=== PATIENT | male | born 1935 | race Caucasian/White ===

== ENCOUNTER → 2016-11-26 | Outpatient (CLI) | payer BC ==
[~2016-11-26] MED LIST: ATOR-26 PO; CLOP1TAB15 PO; LSN25 PO; METO25TA3 PO
--- NOTE | 2016-11-26 11:03 | DIAGNOSTIC IMAGING REPORT ---
(BARIUM SWALLOW) ESOPHAGUS CLINICAL HISTORY: DYSPHASIA COMPARISON STUDY: None FLUOROSCOPY TIME: 1 minute. 20 fluoroscopic spot images were acquired. FINDINGS: The patient swallowed effervescent granules and barium without difficulty. No esophageal masses or ulcerations were visualized. There is a tiny laryngeal diverticulum. No reflux was evident. IMPRESSION: No esophageal masses identified. No evidence of stricture. Electronically signed by: Richard Treviño M.D. 11/26/2016 11:02 AM Dictated Date/Time: 11/26/2016 11:01 AM
== END | disposition home or self-care (01) ==
LOC: C.RAD 10:18
PROVIDERS: ATTEND Family Medicine
DX: R13.10 Dysphagia, unspecified (principal)

== ENCOUNTER → 2017-03-19 | Outpatient (CLI) | payer BC ==
[2017-03-19 14:23] LABS: CHOLESTEROL/HDL RATIO 1.5
== END | disposition home or self-care (01) ==
LOC: C.LABBC 09:44
PROVIDERS: ATTEND Internal Medicine Cardiovascular Disease
DX: I25.10 Atherosclerotic heart disease of native coronary artery without angina pectoris (principal)

== ENCOUNTER → 2017-09-02 | Outpatient (CLI) | payer BC ==
[2017-09-02 13:56] LABS: BASO % 0.9 %; BASO ABS # 0.02 K/uL (0-0.2); COMPLETE YES; EOS % 1.3 %; HEMATOCRIT 39.8 % (42-52); IG% 0.4 %; LYMPH % 12.2 %; LYMPH ABS # 0.28 K/uL (1.2-3.4); MEAN CELL VOLUME 105.3 fL (80-100); MEAN CORPUSCULAR HEMOGLOBIN 35.2 pg (25-34); MEAN CORPUSCULAR HGB CONC 33.4 g/dl (32-36); NEUT % 65.2 %; PLATELET COUNT 169 K/uL (130-400); RED BLOOD COUNT 3.78 M/uL (4.7-6.1)
[2017-09-02 14:37] LABS: ALT/SGPT 27 U/L (12-78); AST/SGOT 36 U/L (15-37); BLOOD UREA NITROGEN 16 mg/dl (7-18); BUN/CREATININE RATIO 15.9 (10-20); CALCIUM 8.9 mg/dl (8.5-10.1); CARBON DIOXIDE 31 mmol/L (21-32); CHLORIDE 103 mmol/L (98-107); CREATININE 0.98 mg/dl (0.60-1.40); GLUCOSE 93 mg/dl (70-99); POTASSIUM 4.1 mmol/L (3.5-5.1); SODIUM 138 mmol/L (136-145); URIC ACID 4.7 mg/dl (2.6-7.2)
[2017-09-02 14:42] LABS: CHOLESTEROL/HDL RATIO 1.6
[2017-09-02 14:46] LABS: ALB/GLOB RATIO 1.2 (0.9-2); ALKALINE PHOSPHATASE 93 U/L (45-117); TOTAL IRON BINDING CAPACITY 265 mcg/dl (250-450)
[2017-09-03 07:03] LABS: ESTIMATED AVERAGE GLUCOSE 97 mg/dl; HA1C FLAG Normal (Normal)
== END | disposition home or self-care (01) ==
LOC: C.LABBC 10:18
PROVIDERS: ATTEND Internal Medicine Cardiovascular Disease
DX: E88.81 Metabolic syndrome and other insulin resistance (principal); E55.9 Vitamin D deficiency, unspecified; D51.9 Vitamin B12 deficiency anemia, unspecified; R53.83 Other fatigue; E78.5 Hyperlipidemia, unspecified